=== PATIENT | female | born 1985 | race Caucasian/White ===

== ENCOUNTER 2021-11-08 14:41 | Outpatient (CLI) | payer OTHER ==
[2021-11-08 17:32] VITALS: BP 112/68; PULSE 104; RESP 17; TEMP 97.8
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
== END 2021-11-08 17:10 | disposition home or self-care (01) ==
LOC: FBPOP 14:41
PROVIDERS: ATTEND Obstetrics & Gynecology Obstetrics
DX: O99.891 Other specified diseases and conditions complicating pregnancy (principal); M25.561 Pain in right knee; Z3A.35 35 weeks gestation of pregnancy; Z91.040 Latex allergy status
CPT/HCPCS: 59025; G0463; 99213

== ENCOUNTER 2021-12-05 05:52 | Inpatient (IN) | payer OTHER ==
[2021-12-05] MEDS ORDERED: CARBOPROST TROMETHAMINE 250 MCG/ML 1 ML AMP IM PRN (06:24)
[2021-12-05] MEDS ORDERED: OXYTOCIN 10 UNIT/ML 1 ML VIAL IM PRN (06:24)
[2021-12-05] MEDS ORDERED: LIDOCAINE 1% (PF) 10 MG/ML (30 ML SDV) SQ PRN (06:24)
[2021-12-05] MEDS ORDERED: TERBUTALINE 1 MG/ML VIAL SQ PRN (06:24)
[2021-12-05] MEDS ORDERED: METHYLERGONOVINE 0.2 MG/ML 1 ML AMP IM PRN (06:24)
[2021-12-05] MEDS ORDERED: OXYTOCIN 30 UNITS/500 ML NS 30 UNIT in SALINE 1 500ML.BAG IV SCH ×2 (06:30→18:30)
[2021-12-05] MEDS: LACTATED RINGERS 1,000 ML IV SCH ×3 (06:39→16:15)
[2021-12-05 07:34] LABS: Basophils % (A) 0 %; Eosinophils # (A) 0.1 k/uL (0-0.7); Eosinophils % (A) 1 %; HCT 35.5 % (34.0-46.0); HGB 11.1 gm/dL (11.4-16.0); Hypochromasia Slight; Lymphocytes # (A) 1.6 k/uL (1.0-4.8); Lymphocytes % (A) 16 %; MCH 26.9 pg (25.0-35.0); MCHC 31.1 g/dL (31.0-37.0); MCV 86.6 fL (80.0-100.0); Mean Platelet Volume 9.7; Monocytes # (A) 0.4 k/uL (0-1.0); Monocytes % (A) 4 %; Neutrophils # (A) 7.5 k/uL (1.3-7.7); Neutrophils % (A) 77 %; Platelet Count 288 k/uL (150-450); RBC 4.11 m/uL (3.80-5.40); RDW 15.1 % (11.5-15.5); WBC 9.7 k/uL (3.8-10.6)
--- NOTE | 2021-12-05 12:04 | P.HPOB ---
History of Present Illness H&P Date: 12/05/21 Chief Complaint: IUP at 39 and 0 This is a 36-year-old 5 para 3013 at 39-0/7 weeks, estimated due date of that presents to labor and delivery for elective induction of labor. Patient has been having routine care with myself, she did have a diagnosis of polyhydramnios with an amniotic fluid index of 26, she has been undergoing testing, repeat JESUS of 22. Patient notes good movement. Infant has been noted to be in vertex presentation via ultrasound. With patient's first delivery she had extensive vaginal lacerations with delive ry, she is very concerned. Her second delivery went better according to her, was larger but lacerations were minimal. Patient has a known blood type of A+, rubella status immune, hepatitis B surface antigen negative, RPR nonreactive, she did pass her one-hour Glucola, group beta strep cultures were negative on 11/16. Review of Systems Constitutional: Denies fatigue, Denies fever Ears, nose, mouth and throat: Denies headache Cardiovascular: Reports leg edema Respiratory: Denies dyspnea Gastrointestinal: Denies constipation, Denies diarrhea, Denies nausea, Denies vomiting Genitourinary: Reports Past Medical History Past Medical History: GERD/Reflux History of Any Multi-Drug Resistant Organisms: None Reported Past Surgical History: No Surgical Hx Reported Past Anesthesia/Blood Transfusion Reactions: No Reported Reaction Past Psychological History: No Psychological Hx Reported Smoking Status: Never smoker Past Alcohol Use History: None Reported Past Drug Use History: None Reported - Past Family History Mother Family Medical History: AFIB Medications and Allergies Home Medications Medication Instructions Recorded Confirmed Type No Known Home Medications 12/05/21 12/05/21 History Allergies Allergy/AdvReac Type Severity Reaction Status Date / Time latex Allergy Rash/Hives Verified 12/05/21 06:23 Exam Osteopathic Statement: *. No significant issues noted on an osteopathic structural exam other than those noted in the History and Physical/Consult. Vital Signs Temp Pulse Resp BP Pulse Ox 12/05/21 06:22 95.6 F L 101 H 16 127/86 99 Intake and Output 12/04/21 12/05/21 12/05/21 22:59 06:59 14:59 Other: Weight 121.563 kg Targeted physical exam is performed and state in general this a well-nourished well-developed female in no acute distress, breathing is noted to be nonlabored, heart has a regular rate and rhythm, abdomen is gravid and appropriate for gestational age, on cervical exam she is 4/60/-2 station, anterior. Amniotomy is performed clear fluid is obtained. heart tones returned be category 1 and she is dangelo every 2-3 minutes. Results Result Diagrams: 12/05/21 07:18 Abnormal Lab Results - Last 24 Hours (Table) 12/05/21 Range/Units 07:18 Hgb 11.1 L (11.4-16.0) gm/dL Assessment and Plan (1) Term Current Visit: Yes Status: Acute Code(s): Z34.90 - ENCNTR FOR SUPRVSN OF NORMAL , UNSP, UNSP TRIMESTER SNOMED Code(s): 50316166 (2) Polyhydramnios Current Visit: Yes Status: Acute Code(s): O40.9XX0 - POLYHYDRAMNIOS, UNSP TRIMESTER, NOT APPLICABLE OR UNSP SNOMED Code(s): 48817122 Plan: 36-year-old 5 para 3013 at 39-0/7 weeks presents to labor and delivery for induction of labor. Patient has known polyhydramnios, maternal discomfort. Patient is admitted to labor and delivery Pitocin induction of labor is begun per hospital protocol. Patient is desirous about epidural, anesthesia will be notified. Anticipate spontaneous vaginal delivery later this afternoon.
[2021-12-05] MEDS ORDERED: ROPIVACAINE 100 MG, fentaNYL (PF). 200 MCG in SODIUM CHLORIDE 0.9% 76 ML EPIDURAL ONE (14:42)
[2021-12-05] MEDS ORDERED: LANOLIN CREAM 5 GM TUBE TOPICAL PRN (18:17)
[2021-12-05] MEDS ORDERED: diphenhydrAMINE 50 MG CAP PO PRN (18:17)
[2021-12-05] MEDS ORDERED: BENZOCAINE/MENTHOL SPRAY 1 GM/SPRAY AEROSOL TOPICAL PRN (18:17)
[2021-12-05] MEDS ORDERED: HYDROCORTISONE 2.5% RECTAL CREAM 30 GM TUBE RECTAL PRN (18:17)
[2021-12-05] MEDS ORDERED: diphenhydrAMINE 50 MG/ML 1 ML VIAL IVP PRN ×2 (18:17)
[2021-12-05] MEDS ORDERED: SIMETHICONE 80 MG CHEWABLE PO PRN (18:17)
[2021-12-05] MEDS ORDERED: diphenhydrAMINE 25 MG CAP PO PRN (18:17)
[2021-12-05] MEDS ORDERED: ZOLPIDEM 5 MG TAB PO PRN (18:17)
[2021-12-05] MEDS ORDERED: miSOPROStoL 200 MCG TAB VAGINAL STA (18:18)
--- NOTE | 2021-12-05 18:22 | P.PROBDLV ---
Vaginal Delivery Note - . Vaginal Delivery Note: 36-year-old 5 para 3013 at 39-0/7 weeks that presented to labor and delivery this morning for elective induction of labor. Patient had routine care which has been essentially uncomplicated. Patient has comorbidities of advanced maternal age and obesity. Patient was admitted to labor and delivery and Pitocin induction of labor was begun. Patient progressed through labor when regular contractions were noted amniotomy was performed. Patient did become uncomfortable and requested epidural placement. Epidural was placed without difficulty by the anesthesia department. Patient made slow progress eventually becoming complete. Patient was placed in a modified lithotomy position with excellent maternal effort infant was brought down to a , with additional maternal pushing the anterior/posterior shoulders were delivered followed by the 's body. was then placed in the maternal abdomen. After a two-minute delayed the umbo cord was doubly clamped and cut. A spontaneous cry was noted at . The placenta was noted to be adherent after 25 minutes of waiting, mom requested to push versus uterine Cred, increased bleeding was noted therefore partial manual extraction of the placenta was performed. Patient was offered Stadol prior to partial extraction, she did decline. Placenta was inspected and found to be intact, uterus was noted to be firm and below the umbilicus after delivery of the placenta. On in spection of the patient's vaginal vault a second-degree vaginal laceration was appreciated. This was injected with lidocaine, repaired in usual fashion with 3-0 repeat. Hemostasis was appreciated after repair. Uterus was noted to be still firm and below the umbilicus after repair. Rectal exam was performed and found to be normal in nature. Cytotec 1000 g was placed rectally. Patient and infant did tolerate delivery well and are resting comfortably.
[2021-12-05] MEDS: IBUPROFEN 600 MG TAB PO SCH (18:36)
[2021-12-05] MEDS: ACETAMINOPHEN TAB 325 MG TAB PO PRN (20:56)
[2021-12-05] MEDS: SENNOSIDES-DOCUSATE SODIUM 1 EACH TAB PO SCH (20:56)
[2021-12-06] MEDS: IBUPROFEN 600 MG TAB PO SCH ×4 (00:01→21:27)
[2021-12-06] MEDS: ACETAMINOPHEN TAB 325 MG TAB PO PRN ×3 (03:14→13:47)
[2021-12-06 05:47] LABS: Basophils % (A) 0 %; Eosinophils # (A) 0.1 k/uL (0-0.7); Eosinophils % (A) 0 %; HCT 34.4 % (34.0-46.0); HGB 10.8 gm/dL (11.4-16.0); Hypochromasia Moderate; Lymphocytes # (A) 1.7 k/uL (1.0-4.8); Lymphocytes % (A) 17 %; MCH 27.4 pg (25.0-35.0); MCHC 31.4 g/dL (31.0-37.0); MCV 87.1 fL (80.0-100.0); Mean Platelet Volume 9.7; Monocytes # (A) 0.5 k/uL (0-1.0); Monocytes % (A) 5 %; Neutrophils # (A) 7.9 k/uL (1.3-7.7); Neutrophils % (A) 77 %; Platelet Count 266 k/uL (150-450); RBC 3.95 m/uL (3.80-5.40); RDW 15.2 % (11.5-15.5); WBC 10.3 k/uL (3.8-10.6)
--- NOTE | 2021-12-06 08:39 | P.DS ---
Providers Date of admission: 12/05/21 05:52 Expected date of discharge: 12/06/21 Attending physician: Claudia Rodriges Primary care physician: Stated None - Discharge Diagnosis(es) (1) Term Current Visit: Yes Status: Acute (2) Polyhydramnios Current Visit: Yes Status: Acute (3) Status post normal vaginal delivery Current Visit: Yes Status: Acute (4) Second degree perineal laceration during delivery Current Visit: Yes Status: Acute (5) Retained placenta or membranes without hemorrhage Current Visit: Yes Status: Acute Hospital Course: This is a 36-year-old 5 para 4014 status post normal spontaneous vaginal delivery. Patient was admitted yesterday morning for scheduled induction of labor at 39-0/7 weeks. Patient had been receiving routine care with myself, slightly complicated by elevated amniotic fluid index. Borderline polyhydramnios. Patient was extremely uncomfortable and requested induction of labor. Patient was admitted to labor and delivery and Pitocin induction of labor was begun. After regular strong contractions were appreciated amniotomy was performed and clear fluid was obtained. Patient quickly requested epidural placement after amniotomy. Patient made slow progress towards complete began pushing and had a normal spontaneous vaginal delivery of a viable male infant at 1754, weight of 8 lbs. 14 oz. Patient had sustained a second-degree midline laceration during delivery. Patient did require a partial extraction of the placenta as it was noted to be adherent to the fundal/anterior uterine wall. On inspection after delivery placenta was noted to be intact. Patient's bleeding has been good overnight. She did receive Cytotec rectally after delivery of the placenta. Patient is breast-feeding without difficulty. She did breast-feed her other children, her last child did have jaundice so we will await bilirubin levels of this at 24 hours of life. Patient would like discharge home today. She is ambulating and voiding without difficulty. Her pain is controlled with oral ibuprofen every 6 hours. Patient Condition at Discharge: Good Plan - Discharge Summary New Discharge Prescriptions: No Action No Known Home Medications Discharge Medication List No Known Home Medications 12/05/21 [History] Follow up Appointment(s)/Referral(s): Claudia Rodriges DO [Doctor of Osteopathic Medicine] - 4 Weeks Patient Instructions/Handouts: Vaginal Delivery (GEN), Vaginal Delivery (DC) Activity/Diet/Wound Care/Special Instructions: Patient can expect menstrual-like bleeding , [id number]-owt-ebatief ibuprofen 600 mg every 6 hours as needed for pain. Patient is to follow-up in 4 weeks for routine check. Should she have any concerns prior to this appointment she is urged to call the office. Discharge Disposition: HOME SELF-CARE
[2021-12-06] MEDS: SENNOSIDES-DOCUSATE SODIUM 1 EACH TAB PO SCH ×2 (11:22→21:27)
[2021-12-07] MEDS: IBUPROFEN 600 MG TAB PO SCH ×4 (04:02→18:11)
[2021-12-07] MEDS: SENNOSIDES-DOCUSATE SODIUM 1 EACH TAB PO SCH (08:16)
--- NOTE | 2021-12-07 08:52 | P.PNOBGVD ---
Subjective - Subjective Principal diagnosis: day #2 Interval history: Patient is doing well . 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 Tolerating a regular diet without nausea or vomiting. She did end up staying another day secondary to her being on phototherapy for jaundice. Patient reports: Reports appetite normal, Reports voiding normally, Reports pain well controlled, Reports ambulating normally [place]: doing well Objective - Latest Vital Signs Latest vital signs: Vital Signs Temp Pulse Resp BP Pulse Ox 12/07/21 08:00 97.9 F 63 18 121/87 98 12/07/21 00:00 97.8 F 77 17 117/83 98 12/06/21 15:52 97.5 F L 89 20 126/78 12/06/21 12:00 98.3 F 79 16 127/78 98 Intake and Output 12/06/21 12/07/21 12/07/21 22:59 06:59 14:59 Other: # Voids 1 1 - Exam Extremities: Present: normal, edema Abdomen: Present: normal appearance, soft Uterus: Present: normal, firm Assessment and Plan (1) Term Current Visit: Yes Status: Acute Code(s): Z34.90 - ENCNTR FOR SUPRVSN OF NORMAL , UNSP, UNSP TRIMESTER SNOMED Code(s): 61752488 (2) Polyhydramnios Current Visit: Yes Status: Acute Code(s): O40.9XX0 - POLYHYDRAMNIOS, UNSP TR IMESTER, NOT APPLICABLE OR UNSP SNOMED Code(s): 67319600 (3) Status post normal vaginal delivery Current Visit: Yes Status: Acute Code(s): FMV9605 - SNOMED Code(s): 842176469 (4) Second degree perineal laceration during delivery Current Visit: Yes Status: Acute Code(s): O70.1 - SECOND DEGREE PERINEAL LACERATION DURING DELIVERY SNOMED Code(s): 1447489 (5) Retained placenta or membranes without hemorrhage Current Visit: Yes Status: Acute Code(s): APW6354 - SNOMED Code(s): 1278913221 Plan: Patient is doing well . Anticipate discharge home today as she is day #2. Routine instructions were reviewed with patient. Patient is to follow-up in 4 weeks for routine check.
[2021-12-07 15:42] VITALS: BP 118/66; PULSE 60; RESP 16; TEMP 97.8
== END 2021-12-07 19:35 | disposition home or self-care (01) | DRG 807 ==
LOC: 4FBP 05:52
PROVIDERS: ADMIT Obstetrics & Gynecology Obstetrics; ATTEND Obstetrics & Gynecology Obstetrics
PROC: 10E0XZZ Delivery of Products of Conception, External Approach (ICD-10-PCS; principal; 2021-12-05)
PROC: 0KQM0ZZ Repair Perineum Muscle, Open Approach (ICD-10-PCS; 2021-12-05)
PROC: 10907ZC Drainage of Amniotic Fluid, Therapeutic from Products of Conception, Via Natural or Artificial Opening (ICD-10-PCS; 2021-12-05)
PROC: 3E033VJ Introduction of Other Hormone into Peripheral Vein, Percutaneous Approach (ICD-10-PCS; 2021-12-05)
DX: O40.3XX0 Polyhydramnios, third trimester, not applicable or unspecified (principal); Z37.0 Single live birth; O70.1 Second degree perineal laceration during delivery; O73.0 Retained placenta without hemorrhage; O99.214 Obesity complicating childbirth; O99.62 Diseases of the digestive system complicating childbirth; K21.9 Gastro-esophageal reflux disease without esophagitis; Z3A.39 39 weeks gestation of pregnancy; Z91.040 Latex allergy status
CPT/HCPCS: 85025; 86850; 86900; 86901; 88307

== ENCOUNTER → 2023-05-20 | Outpatient (CLI) | payer OTHER ==
--- NOTE | 2023-05-21 19:16 | MM ---
Reason for Exam: Screening (asymptomatic). Baseline mammogram. Patient History: Menarche at age 12. First Full-Term at age 27. Patient has history of breast feeding. Last menstrual period: 04/25/2023 Risk Values: Miya 5 year model risk: 0.6%. NCI Lifetime model risk: 10.2%. Prior Study Comparison: Patient's first Mammogram. Tissue Density: There are scattered fibroglandular densities. Findings: Analyzed By CAD. Pattern appears symmetrical and stable. A benign calcification in the left breast. No suspicious groups of microcalcifications, spiculated or lobular masses, architectural distortion or other secondary signs of malignancy are mammographically apparent. Overall Assessment: Benign, BI-RAD 2 Management: Screening Mammogram of both breasts in 1 year. A negative mammogram report should not preclude additional follow up of suspicious palpable abnormalities. Patient should continue monthly self breast exam. A clinical breast exam by your physician is recommended on an annual basis and results should be correlated with mammographic findings. Electronically signed and approved by: Nilesh Sebastian D.O. Radiologis
== END | disposition home or self-care (01) ==
LOC: RADMAMWWP 09:46
PROVIDERS: ATTEND Internal Medicine
DX: Z12.31 Encounter for screening mammogram for malignant neoplasm of breast (principal)
CPT/HCPCS: 77067